=== PATIENT | male | born 1960 | race Caucasian/White ===

== ENCOUNTER 2019-04-11 01:35 | Inpatient (IN) | payer MEDICARE ==
--- NOTE | 2019-04-11 03:03 | PDOC.FPRHP ---
- History of Present Illness Chief Complaint: Pain and drainage from R LE stump History of Present Illness: Mr. Zaldivar is a 58 yo male with PMHx of bilateral BKA, PVD, and multiple DVTs who presents as a transfer from [facility] for evaluation of pain, tenderness, and drainage from wounds on his right BKA. He states that both legs have been hurting and tender for over a month, but contributed it to crawling around on his knees. He states that in the last 4 days he has noticed a distinct increase in the pain and starting yesterday the end of his right stump began oozing clear/brown liquid and developed an bad odor. He contacted his surgeon Dr. Oviedo yesterday who initially scheduled him for an appointment on but then they recommended he go to the ED. Patient rates his pain today as . He admits to taking approx. 8 Tylenol (500mg tabs) and 8 Ibuprofen (200 mg tabs) at home today for pain relief but these did not really improve his pain. He has received multiple pain medications during his time in the [facility] and [facility] ERs (see ED course) but still states his pain is severe. ED Course: Patient was originally seen in [facility] ER in the early afternoon on 04/10 where he received 900 Clindamycin, 80 Lovenox, 50 & 100 Fentanyl, 1 mg Dilaudid , 15 Toradol. He was transferred to [facility] ER at 1:30AM today where he subsequently received Vancomycin x 1. Blood and Wound cultures were obtained. Repeat Lactic Acid was ordered. - Allergies/Adverse Reactions Allergies Allergy/AdvReac Type Severity Reaction Status Date / Time No Known Allergies Allergy Verified 03/17/16 09:11 - Home Medications Medication Instructions Recorded Confirmed Type Lisinopril 10 mg PO DAILY 12/23/15 04/11/19 History Acetaminophen W/ Codeine 1 tab PO Q6HR PRN 03/17/16 04/11/19 History [Acetaminophen/Codeine #3] Ibuprofen [Advil] 800 mg PO Q6HR PRN 03/17/16 04/11/19 History - History PMHx: HTN, PVD, multiple DVTs PSHx: Inguinal Hernia repair x 2 Bilateral BKA Skin graft on left Appendectomy FHx: Mother - Diabetes, pacemaker, (80s) from [place] Father - (67) leukemia Social: 1 PPD smoker x 35 years Drinks beer daily 6-12 Denies illicit drug use - Review of Systems General: denies: fever/chills, weight/appetite/sleep changes, night sweats, fatigue Eyes: denies: eye pain ENT: denies: nasal congestion, rhinorrhea Respiratory: denies: cough, congestion, shortness of breath Cardiovascular: denies: chest pain, palpitation, edema, orthopnea Gastrointestinal: denies: nausea, vomiting, diarrhea, constipation, abdominal pain, GI bleeding Genitourinary: denies: incontinence, dysuria, polyuria Skin: reports: lesions (Right stump) Musculoskeletal: reports: pain (right stump), tenderness, swelling Neurological: denies: syncope, weakness Psychological: denies: anxiety, depression - Vital signs BP: 126/89 HR: 87 RR: 16 Tmax: 98.2 Pox: 88% on RA Wt: 74.8 kg - Physical Exam Constitutional: NAD, awake, alert and oriented, well developed HEENT: normocephalic and atraumatic, PERRLA, EOMI, grossly normal vision, grossly normal hearing Neck: supple, FROM Chest: no-tender to palpation Heart: RRR, normal S1/S2, no murmurs/rubs/gallops Lungs: CTAB, no respiratory distress, good air movement, no rales/rhonchi, no wheezing, no retractions Abdomen: soft, non-tender, bowel sounds present, no masses/distention Musculoskeletal: other (Bilateral BKA. Right kneecap eschar is [id number]. Right inscisional eschar is [id number]. Left stump well healed.) Neurological: no focal deficit, CN II-XII intact, normal sensation Skin: other (skin breakdown over right stump, darkened pigmentation over nose and extremities) Heme/Lymphatic: no unusual bruising or bleeding Psychiatric: normal mood and affect, good judgment and insight, intact recent and remote memory FMR H&P: Results - Labs Result Diagrams: 04/11/19 04:49 04/11/19 04:48 Lab results: Lactic acid 1.1 CBC: WBC 7.29, Hgb 18.1, Hct 53.0, MCV 88.6, Platelet 151 CMP: Na 131, K 3.4, Cl 99, CO2 19, BUN 4.1, Cr 0.6, GFR 142, Glucose 78, Ca 9.01 , Alk Phos 51, AST 20, ALT 21, Protein total 7.1 PT 13.2, INR 1.0, PTT 28.3 Ethanol Level: 74.2 See Patient's Chart for [facility] FMR H&P: A/P - Problem List (1) Cellulitis of right lower extremity Current Visit: Yes Status: Acute Code(s): L03.115 - CELLULITIS OF RIGHT LOWER LIMB (2) Hx of BKA Current Visit: Yes Status: Chronic Code(s): Z89.519 - ACQUIRED ABSENCE OF UNSPECIFIED LEG BELOW KNEE Qualifiers: Laterality: right Qualified Code(s): Z89.511 - Acquired absence of right leg below knee (3) BKA stump complication Current Visit: Yes Status: Acute Code(s): T87.9 - UNSPECIFIED COMPLICATIONS OF AMPUTATION STUMP (4) History of DVT (deep vein thrombosis) Current Visit: Yes Status: Chronic Code(s): Z86.718 - PERSONAL HISTORY OF OTHER VENOUS THROMBOSIS AND EMBOLISM (5) Alcohol abuse Current Visit: Yes Status: Chronic Code(s): F10.10 - ALCOHOL ABUSE, UNCOMPLICATED (6) Hypertension Current Visit: Yes Status: Chronic Code(s): I10 - ESSENTIAL (PRIMARY) HYPERTENSION Qualifiers: Hypertension type: essential hypertension Qualified Code(s): I10 - Essential (primary) hypertension (7) PVD (peripheral vascular disease) Current Visit: Yes Status: Chronic Code(s): I73.9 - PERIPHERAL VASCULAR DISEASE, UNSPECIFIED (8) Tobacco abuse Current Visit: Yes Status: Chronic Code(s): Z72.0 - TOBACCO USE (9) Hyponatremia Current Visit: Yes Status: Acute Code(s): E87.1 - HYPO-OSMOLALITY AND HYPONATREMIA - Plan 1. Cellulitis of Right Lower Extremity, r/o Osteomyelitis -Continue Vancomycin, pharmacy to dose -XR of Right LE -Check CRP, ESR, Procalcitonin -LR at 100 ml/hr 2. BKA Stump Complication, 2 wounds to right BKA -Morphine 4mg -Wound cultures -Consult Dr. Oviedo, Surgery -Consult Wound Care -Keep NPO until after surgery 3. Hypertension -Hold home Lisinopril 10 mg while NPO -Hydralazine 10mg ordered prn if BP systolic 180< 4. Tobacco use -Nicotine patch ordered 5. Alcohol Abuse -ASE protocol ordered 6. Peripheral Vascular Disease 7. Hx of DVTs -Hold Lovenox until after surgery -Consider long-term anticoagulation as outpatient 8. Hx of BKA, bilateral 9. Hyponatremia -Serum osm, Urine osm, Urine Na+ -AM CMP Code: DNI Diet: NPO until after surgery VTE: C/I until after surgery Disposition/LOS: Admit patient to medicine inpatient with expected LOS >48 hrs FMR H&P: Upper Level - Pertinent history 58 y/o M PMHx Multiple DVT's, HTN, PVD with h/o bilateral BKA's presents to the ED complaining of RLE pain. He had wounds that formed on his R stump over a month ago. He follows Dr. Oviedo who performed his BKA's. He saw him about a month ago and he says at the time the eschars were not as bad and it wasn't this painful. He reports about 3 days ago it began getting very painful, red, and leaking fluid. He denies any fevers, chills, N/V, chest pain, SOB. He had been on a chronic anticoagulant in the past, but he was unable to get eliquis because of cost so he hasn't been taking anything recently. He reports his BKA' s were over three years ago, the most recent one was the R. He smokes about 1ppd and drinks about 6-12 beers per day. He reports that there are some days where he wont drink anything, but he has never had any alcohol withdrawal tremors or seizures. - Pertinent findings Vitals: BP: 126/89 HR: 87 RR: 16 Tmax: 98.2 Pox: 88% on RA PE: Gen - alert, oriented, resting comfortably in NAD HEENT - MMM CV - RRR, no murmurs, gallops Resp - CTAB, no wheezes Abd - soft, nondistended, non tender Ext - Bilateral BKA Skin - 3x5 cm ulceration with central eschar on the anterior lateral aspect of the R stump with surrounding erythema and tenderness, no warmth. 5x6 cm ulceration with central eschar on the plantar aspect of the R stump with surrounding erythema and tenderness and serosanguinous fluid leaking from it Labs: Na 131, K 3.4, BUN 4.1, Cr 0.6, WBC 7.29, Platelet 151, EtOH 74.2 - Plan Date/Time: 04/11/19 0302 I, Jessica Elmore MD, PGY-2, have evaluated this patient and agree with findings/ plan as outlined by research program internship resident. Pertinent changes/additions are listed here. RLE ulceration with surrounding cellulitis Black eschar on both areas. Surrounding erythema and tenderness, no warmth noted. Pt afebrile and no elevation in lactic acid or WBC count. Concern for possible osteo vs superficial infection vs thrombosis. -X-ray -Vancomycin -Procalcitonin, ESR, CRP -Blood cultures, wound cultures -LR @ 100 -Will consult Dr. Oviedo with CV surgery this AM Hyponatremia Mild at 131. Likely 2/2 beer potomania. -Will check Urine Na, Urine Osm, Serum Osm -Monitor HTN BP well controlled at this time -Will have prn hydralazine and will restart PO lisinopril after decision made about surgery H/O DVT Pt was supposed to be on chronic anticoagulation per patient, but is not at this time -Consider re-initiating if it is found to be indicated Alcohol Abuse Was intoxicated in the [facility] ED. Had 8 drinks yesterday. -Will monitor ASE scores -If develops signs of withdrawal, will treat -Cessation counseling Tobacco Abuse -Nicoderm patch -Cessation counseling PVD s/p Bilateral BKA VTE ppx: None, will await decision about surgery prior to initiating lovenox Code status: Cardiac code only Diet: NPO pending possible surgery Addendum - Attending - Attending Attestation Date/Time: 04/11/19 1014 I personally evaluated the patient and discussed the management with Dr. Maria/ Ramírez. I agree with the History, Examination, Assessment and Plan documented above with any addition or exceptions noted below. Patient with history of b/l BKA 2/2 PVD and medical noncompliance with tobacco abuse presents with 1 month of increasing pain and open wound/drainage over the last 2 days from his L sided BKA. Denies fevers, chills. Reports only taking Lisinopril currently, has not taken ASA or Eliquis for months. Exam shows shallow ulcerations with drainage on the base of stump. He is afebrile. Labs do not suggest systemic infection. ESR low. CV sugery consulted as they are who performed BKA to start with. They are currently not recommending surgical intervention. Will consult Wound care. Due to history of pseudomonas infection, will continue Vanc and add Zosyn for now. Will work to restart patient on all the meds he needs to be on for PVD and recommend tobacco cessation. Anticipate 2 -3 days hospitalization pending clinical course.
[2019-04-11] MEDS ORDERED: HYDROcodone/Acetaminophen 5/325 mg Tablet ONE (03:10)
[2019-04-11] MEDS ORDERED: hydrALAZINE 20 MG/ML VIAL SLOW IVP PRN (03:53)
[2019-04-11] MEDS ORDERED: Ondansetron PF 4 MG/2 ML Vial IVP PRN (04:18)
[2019-04-11] MEDS ORDERED: Ondansetron ODT 4 MG TAB SL PRN (04:18)
[2019-04-11] MEDS ORDERED: Acetaminophen 325 MG TAB PO PRN (04:18)
[2019-04-11] MEDS ORDERED: Ondansetron ODT 4 MG TAB PO PRN (04:20)
[2019-04-11] MEDS ORDERED: Famotidine 20 MG TAB PO PRN (04:20)
[2019-04-11] MEDS ORDERED: Senokot S 8.6-50 MG TAB PO PRN (04:20)
[2019-04-11] MEDS: Lactated Ringer's 1,000 ML IV SCH ×2 (04:43→15:46)
[2019-04-11 04:59] LABS: #Basophils 0.1 thou/uL (0.0-0.2); #Eosinphils 0.2 thou/uL (0.0-0.7); #Lymphocytes 1.3 thou/uL (1.20-3.40); #Monocytes 0.8 thou/uL (0.11-0.59); #Neutrophils 4.3 thou/uL (1.40-6.50); %Eosinophils 3.6 % (0.0-10.0); %Lymphocytes 19.3 % (21.0-51.0); %Monocytes 12.1 % (0.0-10.0); Hemoglobin 17.7 g/dL (14.0-18.0); Mean Corpuscular Hemoglobin 31.6 pg (27.0-31.0); Mean Corpuscular Volume 95.8 fL (78.0-98.0); Mean Platelet Volume 6.6 fL (7.4-10.4); Platelet Count 130 thou/uL (130-400); RBC Distribution Width 12.9 % (11.5-14.5); Red Blood Cell (RBC) Count 5.59 mill/uL (4.70-6.10); White Blood Cell (WBC) Count 6.8 thou/uL (4.8-10.8)
[2019-04-11] MEDS ORDERED: Nicotine 21 MG PATCH TD SCH (05:00)
[2019-04-11] MEDS: Morphine 4 MG/ML VIAL SLOW IVP PRN ×2 (05:20→09:13)
[2019-04-11 05:22] LABS: Anion Gap 11 mmol/L (10-20); BUN (Urea Nitrogen) 6 mg/dL (8.4-25.7); Calc. Creatinine Clearance 0 mL/min (70-130); Calcium 9.3 mg/dL (7.8-10.44); Carbon Dioxide 25 mmol/L (22-29); Chloride 98 mmol/L (98-107); Estimated GFR-MDRD Greater than 90; Glucose 81 mg/dL (70-105); Sodium 130 mmol/L (136-145)
[2019-04-11 10:38] LABS: Cardiac Risk 4.5 (Less than 4.5)
--- NOTE | 2019-04-11 10:44 | CON ---
DATE OF CONSULTATION: HISTORY OF PRESENT ILLNESS: Mr. Zaldivar is a 58-year-old gentleman, well known to me from previous encounter. He underwent a right below-knee amputation for severe peripheral vascular disease with non-reconstructible anatomy on 03/18. He had healed nicely postoperatively. He never was able to use his prosthesis. He has also undergone a left below-knee amputation in the distant past. He gets around by crawling on his knees and dragging the distal stumps behind him. The patient presented to my office approximately a month ago with an ulcer over his patella and also an ulcer over his actual wound of his below-knee stump. This was from dragging himself on his knees and wearing the skin off his kneecaps and also abrasion and trauma to his incision. He continues to smoke over a pack of cigarettes a day at this point. At that time, we had a long discussion regarding his situation. If he was to continue to crawl on his knees and drag himself around and placed pressure on his patella, I did not feel like this would ever heal. He actually stopped doing this and his patella abrasion has nearly healed. The area over his incision has continued to fester. He has not had any good wound care to it since. He continues to smoke. PAST MEDICAL HISTORY: 1. Peripheral vascular disease. 2. Tobacco abuse. 3. History of hypercoagulable disorder. 4. History of bilateral DVT. 5. COPD. 6. Hypertension. 7. Noncompliance. 8. History of vena caval filter placement. MEDICATIONS: Noted. ALLERGIES: NONE. PHYSICAL EXAMINATION: GENERAL: This is a well-developed, well-nourished man who obviously smokes. He smells of cigarettes. LUNGS: Have distant breath sounds bilaterally. HEART: Rhythm is regular. ABDOMEN: Soft. EXTREMITIES: His right stump is as above. ASSESSMENT AND PLAN: Status post bilateral below-knee amputations with open area over his patella and over the incision on his right stump. I would recommend wound care over the incisional area. His right patellar abrasion/ulcer is healing and probably does not need anything done with it. We may have to debride and use a wound VAC on the incisional area, if this does not improve. I have also removed his nicotine patch. He has been going to have to go without nicotine to allow any healing to happen here. Job ID: [id number]
[2019-04-11] MEDS: Morphine 2 MG/ML SYRINGE SLOW IVP PRN ×5 (13:21→23:42)
[2019-04-11] MEDS: Piperacillin/Tazobactam 4.5 GM in Sodium Chloride 0.9% 100 ML IVPB SCH ×2 (13:21→20:08)
[2019-04-11 13:51] VITALS: BMI 21.2
--- NOTE | 2019-04-11 14:38 | RAD ---
RIGHT KNEE FOUR VIEWS: INDICATIONS: Rule out osteomyelitis. COMPARISON: None. FINDINGS: There is soft tissue gas involving the amputation stump overlying the right BKA. No overt destructiv e osteolysis is suggested in the amputation stump to suggest the presence of osteomyelitis. There is diffuse osteopenia. No definite joint capsular distention is evident. IMPRESSION: 1. Soft tissue gas involving the amputation soft tissue stump. May reflect localized wound incision and debridement or soft tissue infection. Recommend correlation. There is no destructive osteolysi s to suggest the presence radiographically of osteomyelitis. 2. Diffuse osteopenia. POS: CET
[2019-04-11] MEDS ORDERED: SODIUM CHLORIDE 0.9% IVPB SCH (15:00)
[2019-04-11] MEDS ORDERED: VANCOMYCIN HCL IVPB SCH (15:00)
[2019-04-11] MEDS: Vancomycin HCl 1.25 GM in Sodium Chloride 0.9% 250 ML 250 ML IVPB SCH (15:46)
[2019-04-11] MEDS: Atorvastatin Calcium 40 MG TAB PO SCH (20:08)
[2019-04-11] MEDS: Enoxaparin Sodium 40 MG/0.4 ML SYRINGE SC SCH (20:08)
[2019-04-12] MEDS: Lactated Ringer's 1,000 ML IV SCH ×3 (01:26→23:30)
[2019-04-12] MEDS: Morphine 2 MG/ML SYRINGE SLOW IVP PRN ×4 (02:08→09:08)
[2019-04-12] MEDS: Vancomycin HCl 1.25 GM in Sodium Chloride 0.9% 250 ML 250 ML IVPB SCH ×2 (02:08→15:27)
[2019-04-12] MEDS: Piperacillin/Tazobactam 4.5 GM in Sodium Chloride 0.9% 100 ML IVPB SCH ×3 (05:22→20:24)
--- NOTE | 2019-04-12 08:44 | PDOC.FM ---
- Subjective Subjective: Patient states he has 5/10 RLE pain, that is alleviated by hanging his stump off of the bed. He feels he has improved slightly. - Objective MAR Reviewed: Yes Vital Signs & Weight: Vital Signs (12 hours) Temp Pulse Resp BP Pulse Ox 04/12/19 07:55 98.1 F 77 16 162/93 H 96 04/12/19 03:41 98.7 F 76 18 140/86 96 04/11/19 23:32 99.0 F 91 18 119/76 97 Weight Admit Weight 73.028 kg Weight 73.028 kg I&O: 04/11/19 04/12/19 04/13/19 06:59 06:59 06:59 Intake Total 5085 Output Total 2600 Balance 2485 Result Diagrams: 04/11/19 04:49 04/11/19 04:48 Radiology Reviewed by me: Yes (R-Knee: gas in tissue, no osteo, +osteopenia ) Phys Exam - Physical Examination Constitutional: NAD HEENT: PERRLA, moist MMs, sclera anicteric Neck: no nodes, no JVD, supple, full ROM Respiratory: no wheezing, no rales, no rhonchi Cardiovascular: RRR, no significant murmur, no rub Gastrointestinal: soft, non-tender, no distention, positive bowel sounds Musculoskeletal: no edema, pulses present bilateral BKA, Right BKS has X2 eschar over ulcerations. 3-5 CM in size. Neurological: non-focal, moves all 4 limbs Psychiatric: normal affect, A&O x 3 Skin: no rash, normal turgor, cap refill <2 seconds Deviation from normal: R BKA black eschar overlying X2 ulcerative lesions over stump. Dx/Plan (1) Cellulitis of right lower extremity Code(s): L03.115 - CELLULITIS OF RIGHT LOWER LIMB Status: Acute (2) BKA stump complication Code(s): T87.9 - UNSPECIFIED COMPLICATIONS OF AMPUTATION STUMP Status: Acute (3) Alcohol abuse Code(s): F10.10 - ALCOHOL ABUSE, UNCOMPLICATED Status: Chronic (4) History of DVT (deep vein thrombosis) Code(s): Z86.718 - PERSONAL HISTORY OF OTHER VENOUS THROMBOSIS AND EMBOLISM Status: Chronic (5) Hx of BKA Code(s): Z89.519 - ACQUIRED ABSENCE OF UNSPECIFIED LEG BELOW KNEE Status: Chronic Qualifiers: Laterality: right Qualified Code(s): Z89.511 - Acquired absence of right leg below knee (6) Hypertension Code(s): I10 - ESSENTIAL (PRIMARY) HYPERTENSION Status: Chronic Qualifiers: Hypertension type: essential hypertension Qualified Code(s): I10 - Essential (primary) hypertension (7) PVD (peripheral vascular disease) Code(s): I73.9 - PERIPHERAL VASCULAR DISEASE, UNSPECIFIED Status: Chronic (8) Hyponatremia Code(s): E87.1 - HYPO-OSMOLALITY AND HYPONATREMIA Status: Acute - Plan Plan: 58 y/o male admitted for cellulits over left BKA open wounds. 1. Cellulitis and ulceration of Right BKA site. -Xray: gas present in tissue, no osteomyelitis, diffuse osteopenia - continue Vanc and Zosyn - Procalcitonin .06 -ESR 2 -CRP 1.34 -blood and wound culture pending -Consult Dr. Oviedo recommended medical and wound management at this time. No surgery. 2. Peripheral Vascular Disease -patient has been off all medications -restarted statin, aspirin and lovenox -upon discharge, add eliquis -Lipid Panel: triglycerides: 116, Tchol: 136, LDL 84, HDL 31 3. HTN -uncontrolled. 150's/90's -restart PO lisinopril 10 mg daily . 4. Hyponatremia -mildly low, likely chronic and secondary to beer potomania 5. Tobacco abuse d/o -cessation counseling. 6. Hx of Bilateral BKA 7. Alcohol abuse d/o -ASE protocol 8. Full code Disposition: Stable, continue anitbiotic therapy. Addendum - Attending - Attending Attestation Date/Time: 04/12/19 8543 I personally evaluated the patient and discussed the management with Dr. Feliz. I agree with the History, Examination, Assessment and Plan documented above with any addition or exceptions noted below. Patient here for superficial stump cellulitis and ulcerations. Non operative at this point per CV surgery. Continues on IV abx and wound care. Will initiate some baseline oral pain control. Awaiting cx results and further CV recs, if any. Will need outpatient wound care set up upon discharge.
[2019-04-12] MEDS: Aspirin 81 mg Enteric Coated Tablet PO SCH (09:00)
[2019-04-12] MEDS: Lisinopril 10 MG TAB PO SCH (09:13)
[2019-04-12] MEDS: HYDROcodone/Acetaminophen 10/325 mg Tablet PO PRN ×3 (10:07→21:14)
[2019-04-12 14:43] LABS: Vancomycin, Trough 9.4 ug/mL
[2019-04-12] MEDS: Vancomycin HCl 1.5 GM in Sodium Chloride 0.9% 250 ML 300 ML IVPB SCH (18:18)
[2019-04-12] MEDS: Senokot S 8.6-50 MG TAB PO SCH (20:43)
[2019-04-12] MEDS: Enoxaparin Sodium 40 MG/0.4 ML SYRINGE SC SCH (20:44)
[2019-04-12] MEDS: Atorvastatin Calcium 40 MG TAB PO SCH (20:44)
[2019-04-13] MEDS: HYDROcodone/Acetaminophen 10/325 mg Tablet PO PRN ×4 (02:47→19:51)
[2019-04-13] MEDS ORDERED: Vancomycin HCl 1.5 GM in Sodium Chloride 0.9% 250 ML 300 ML IVPB SCH (03:00)
[2019-04-13] MEDS: Piperacillin/Tazobactam 4.5 GM in Sodium Chloride 0.9% 100 ML IVPB SCH ×3 (03:30→19:49)
[2019-04-13] MEDS: Vancomycin HCl 1.5 GM in Sodium Chloride 0.9% 250 ML 300 ML IVPB SCH ×2 (05:30→18:50)
--- NOTE | 2019-04-13 06:10 | PDOC.FM ---
- Subjective Subjective: Patient states his pain is controlled better today than yesterday. He tells me that wound care plans to clean the wounds more aggressively today. Patient states he had trouble taking coumadin in the past and would rather take eliquis upon discharge. - Objective MAR Reviewed: Yes Vital Signs & Weight: Vital Signs (12 hours) Temp Pulse Resp BP Pulse Ox 04/13/19 03:31 98.2 F 71 18 134/78 92 L 04/12/19 23:15 98.2 F 77 18 118/72 94 L 04/12/19 20:20 98.3 F 86 18 131/76 94 L Weight Admit Weight 73.028 kg Weight 73.028 kg I&O: 04/11/19 04/12/19 04/13/19 06:59 06:59 06:59 Intake Total 5085 2640 Output Total 2600 3350 Balance 2485 -710 Result Diagrams: 04/11/19 04:49 04/11/19 04:48 Phys Exam - Physical Examination Constitutional: NAD HEENT: PERRLA, moist MMs, sclera anicteric Neck: no nodes, no JVD, supple, full ROM Respiratory: no rales, no rhonchi, wheezing present Cardiovascular: RRR, no significant murmur, no rub Gastrointestinal: soft, non-tender, no distention, positive bowel sounds Musculoskeletal: no edema, pulses present Neurological: non-focal, normal sensation, moves all 4 limbs Psychiatric: normal affect, A&O x 3 Skin: no rash, normal turgor, cap refill <2 seconds Deviation from normal: X2 ulcertaed lesions on R BKA stump. Dx/Plan (1) Cellulitis of right lower extremity Code(s): L03.115 - CELLULITIS OF RIGHT LOWER LIMB Status: Acute (2) BKA stump complication Code(s): T87.9 - UNSPECIFIED COMPLICATIONS OF AMPUTATION STUMP Status: Acute (3) Alcohol abuse Code(s): F10.10 - ALCOHOL ABUSE, UNCOMPLICATED Status: Chronic (4) History of DVT (deep vein thrombosis) Code(s): Z86.718 - PERSONAL HISTORY OF OTHER VENOUS THROMBOSIS AND EMBOLISM Status: Chronic (5) Hx of BKA Code(s): Z89.519 - ACQUIRED ABSENCE OF UNSPECIFIED LEG BELOW KNEE Status: Chronic Qualifiers: Laterality: right Qualified Code(s): Z89.511 - Acquired absence of right leg below knee (6) Hypertension Code(s): I10 - ESSENTIAL (PRIMARY) HYPERTENSION Status: Chronic Qualifiers: Hypertension type: essential hypertension Qualified Code(s): I10 - Essential (primary) hypertension (7) PVD (peripheral vascular disease) Code(s): I73.9 - PERIPHERAL VASCULAR DISEASE, UNSPECIFIED Status: Chronic (8) Hyponatremia Code(s): E87.1 - HYPO-OSMOLALITY AND HYPONATREMIA Status: Acute - Plan Plan: 58 y/o male admitted for cellulits over left BKA open wounds. 1. Cellulitis and ulceration of Right BKA site. -Xray: gas present in tissue, no osteomyelitis, diffuse osteopenia - continue Vanc and Zosyn, transition to Po antibiotics -Pharmacy consult for vanc dosing, Trough was low yesterday. - Procalcitonin .06 -ESR 2 -CRP 1.34 -blood culture pending -wound culture: gram negative rods, stenotrophomonas maltophilia. Levaquin and Bactrim sensitive. -Consult Dr. Oviedo recommended medical and wound management at this time. No surgery. 2. Peripheral Vascular Disease -patient has been off all medications -restarted statin, aspirin and lovenox -upon discharge, add eliquis. Consulted case management for help with funding. -Lipid Panel: triglycerides: 116, Tchol: 136, LDL 84, HDL 31 3. HTN -controled throughout the night. mostly in 120-130's/70-80's -restarted PO lisinopril 10 mg daily . 4. Hyponatremia -mildly low, likely chronic and secondary to beer potomania 5. Tobacco abuse d/o -cessation counseling. 6. Hx of Bilateral BKA 7. Alcohol abuse d/o -ASE protocol 8. Full code Disposition: Stable, continue anitbiotic therapy, transition to PO. Addendum - Attending - Attending Attestation Date/Time: 04/13/19 2611 I personally evaluated the patient and discussed the management with Dr. Feliz. I agree with the History, Examination, Assessment and Plan documented above with any addition or exceptions noted below. Patient here for L BKA stump cellulitis and ulceration. Wound care on board. He continues on Vanc and Zosyn, cultures resulting with more skin dilan that may be pathogenic at this time. Awaiting final cx. No plans for surgical intervention. Arranging outpatient wound care. Pain control improved with PO meds. He is back on statin and ASA therapy and working to get him patient assistance for Tanvir in outpatient setting.
[2019-04-13] MEDS: Lactated Ringer's 1,000 ML IV SCH ×3 (06:21→23:19)
[2019-04-13] MEDS: Polyethylene Glycol 3350 17 GM Packet PO SCH (08:52)
[2019-04-13] MEDS: Aspirin 81 mg Enteric Coated Tablet PO SCH (08:52)
[2019-04-13] MEDS: Senokot S 8.6-50 MG TAB PO SCH ×2 (08:52→19:49)
[2019-04-13] MEDS: Lisinopril 10 MG TAB PO SCH (08:52)
[2019-04-13] MEDS: Pharmacy to Dose 1 EACH VANCOMYCIN IVPB SCH (08:54)
[2019-04-13 17:33] LABS: Vancomycin, Trough 12.5 ug/mL
[2019-04-13] MEDS: Morphine 2 MG/ML SYRINGE SLOW IVP PRN (18:32)
[2019-04-13] MEDS: Apixaban 5 MG TAB PO SCH (19:49)
[2019-04-13] MEDS: Atorvastatin Calcium 40 MG TAB PO SCH (19:49)
[2019-04-14] MEDS: Morphine 2 MG/ML SYRINGE SLOW IVP PRN ×3 (04:00→22:33)
[2019-04-14] MEDS: HYDROcodone/Acetaminophen 10/325 mg Tablet PO PRN ×4 (04:01→21:11)
[2019-04-14] MEDS: Piperacillin/Tazobactam 4.5 GM in Sodium Chloride 0.9% 100 ML IVPB SCH ×3 (04:01→20:59)
[2019-04-14 05:38] LABS: Vancomycin, Trough 13.2 ug/mL
--- NOTE | 2019-04-14 05:49 | PDOC.FM ---
- Subjective Subjective: Patient states his pain is better managed overall, but he still has some intermittent severe pain spells. He would prefer to go to a SNF or rehab before going home, as I recommended this as a possible discharge plan. - Objective MAR Reviewed: Yes Vital Signs & Weight: Vital Signs (12 hours) Temp Pulse Resp BP Pulse Ox 04/14/19 05:06 98.1 F 63 16 134/82 93 L 04/14/19 00:43 98.2 F 75 16 118/72 98 04/13/19 20:02 98.6 F 70 16 117/72 92 L Weight Admit Weight 73.028 kg Weight 73.028 kg I&O: 04/12/19 04/13/19 04/14/19 06:59 06:59 06:59 Intake Total 5085 2640 3000 Output Total 2600 3350 2050 Balance 2485 -710 950 Result Diagrams: 04/11/19 04:49 04/11/19 04:48 Phys Exam - Physical Examination Constitutional: NAD HEENT: PERRLA, moist MMs, sclera anicteric Neck: no JVD, supple, full ROM Respiratory: no wheezing, no rales, no rhonchi Cardiovascular: RRR, no significant murmur, no rub Gastrointestinal: soft, non-tender, no distention, positive bowel sounds Musculoskeletal: no edema, pulses present bilateral BKA. Tenderness to R BKA stump. Neurological: non-focal, normal sensation, moves all 4 limbs Psychiatric: normal affect Skin: no rash, normal turgor, cap refill <2 seconds Deviation from normal: X2 ulcerations overlying R BKA stump. Dx/Plan (1) Cellulitis of right lower extremity Code(s): L03.115 - CELLULITIS OF RIGHT LOWER LIMB Status: Acute (2) BKA stump complication Code(s): T87.9 - UNSPECIFIED COMPLICATIONS OF AMPUTATION STUMP Status: Acute (3) Alcohol abuse Code(s): F10.10 - ALCOHOL ABUSE, UNCOMPLICATED Status: Chronic (4) History of DVT (deep vein thrombosis) Code(s): Z86.718 - PERSONAL HISTORY OF OTHER VENOUS THROMBOSIS AND EMBOLISM Status: Chronic (5) Hx of BKA Code(s): Z89.519 - ACQUIRED ABSENCE OF UNSPECIFIED LEG BELOW KNEE Status: Chronic Qualifiers: Laterality: right Qualified Code(s): Z89.511 - Acquired absence of right leg below knee (6) Hypertension Code(s): I10 - ESSENTIAL (PRIMARY) HYPERTENSION Status: Chronic Qualifiers: Hypertension type: essential hypertension Qualified Code(s): I10 - Essential (primary) hypertension (7) PVD (peripheral vascular disease) Code(s): I73.9 - PERIPHERAL VASCULAR DISEASE, UNSPECIFIED Status: Chronic (8) Hyponatremia Code(s): E87.1 - HYPO-OSMOLALITY AND HYPONATREMIA Status: Acute - Plan Plan: 58 y/o male admitted for cellulits over left BKA ulcerations. 1. Cellulitis and ulceration of Right BKA site. -Xray: gas present in tissue, no osteomyelitis, diffuse osteopenia - continue Vanc and Zosyn, transition to PO Bactrim -Pharmacy is currently dosing Vanc. Trough 13.2 today. - Procalcitonin .06 -ESR 2 -CRP 1.34 -blood culture pending -wound culture: E. coli, stenotrophomonas maltophilia, MRSA. Bactrim sensitive for X3 organisms. -Consult Dr. Oviedo recommended medical and wound management at this time. No surgery. -Consider transition to temporary Rehab or SNF. 2. Peripheral Vascular Disease -patient has been off all medications -restarted statin, aspirin and eliquis -Consulted case management for help with funding. -Lipid Panel: triglycerides: 116, Tchol: 136, LDL 84, HDL 31 3. HTN -controlled throughout the night. mostly in 120-130's/70-80's -restarted PO lisinopril 10 mg daily . 4. Hyponatremia -mildly low, likely chronic and secondary to beer potomania 5. Tobacco abuse d/o -cessation counseling. 6. Hx of Bilateral BKA 7. Alcohol abuse d/o -ASE protocol 8. Full code Disposition: Stable, continue anitbiotic therapy, transition to PO Bactrim. Consider transition to rehab. Addendum - Attending - Attending Attestation Date/Time: 04/14/19 0777 I personally evaluated the patient and discussed the management with Dr. Feliz. I agree with the History, Examination, Assessment and Plan documented above with any addition or exceptions noted below. Patient here for L BKA stump infection. He continues to do well with some breakthrough pain. Can likely transition to PO Bactrim therapy today. Continue pain control and wound care. Will consult CM to work on placement for patient as he would benefit from Rehab versus SNF prior to going home.
[2019-04-14] MEDS: Vancomycin HCl 1.5 GM in Sodium Chloride 0.9% 250 ML 300 ML IVPB SCH (06:04)
[2019-04-14] MEDS: Pharmacy to Dose 1 EACH VANCOMYCIN IVPB SCH (09:00)
[2019-04-14] MEDS: Senokot S 8.6-50 MG TAB PO SCH ×2 (09:40→21:02)
[2019-04-14] MEDS: Polyethylene Glycol 3350 17 GM Packet PO SCH (09:40)
[2019-04-14] MEDS: Lisinopril 10 MG TAB PO SCH (09:40)
[2019-04-14] MEDS: Aspirin 81 mg Enteric Coated Tablet PO SCH (09:40)
[2019-04-14] MEDS: Apixaban 5 MG TAB PO SCH ×2 (09:40→21:01)
[2019-04-14] MEDS: Lactated Ringer's 1,000 ML IV SCH (13:07)
[2019-04-14] MEDS: Vancomycin HCl 1 GM in Premix Bag 1 BAG IVPB SCH ×2 (14:41→22:24)
[2019-04-14] MEDS: Atorvastatin Calcium 40 MG TAB PO SCH (21:01)
[2019-04-15] MEDS: HYDROcodone/Acetaminophen 10/325 mg Tablet PO PRN ×5 (02:27→22:06)
[2019-04-15] MEDS: Lactated Ringer's 1,000 ML IV SCH ×3 (02:30→18:07)
[2019-04-15] MEDS: Morphine 2 MG/ML SYRINGE SLOW IVP PRN ×2 (05:02→11:44)
[2019-04-15 05:24] LABS: Vancomycin, Trough 21.6 ug/mL
--- NOTE | 2019-04-15 05:37 | PDOC.FM ---
- Subjective Subjective: Patient resting quietly in bed and easily awakened. He states his pain is much better overall, but he still has some intermittent severe pain episodes where pain increases to 10/10. He does not have any pain when he lets his leg hang off the side of the bed. With movement his pain increases to 5-6/10. At admission patient had reported phantom pain in both his legs, but this sensation has improved over the past day. He would prefer at discharge to go to a SNF or rehab before going home. We currently anticipate recommendations from case management. CM is also working to get the patient discount for Eliquis. Patient had been constipated the past few days, but had 1 good BM yesterday afternoon. Wound Care changed his dressing yesterday and instructed him that the dressing would be changed again in 3 days (so anticipate dressing change on 04/17). - Objective MAR Reviewed: Yes Vital Signs & Weight: Vital Signs (12 hours) Temp Pulse Resp BP Pulse Ox 04/15/19 03:50 98 F 60 16 117/77 94 L 04/14/19 20:16 98 F 77 16 114/72 96 Weight Admit Weight 73.028 kg Weight 73.028 kg I&O: 04/13/19 04/14/19 04/15/19 06:59 06:59 06:59 Intake Total 2640 3000 Output Total 3350 2050 1600 Balance -710 950 -1600 Result Diagrams: 04/11/19 04:49 04/11/19 04:48 Additional Labs: Blood cultures: Positive for MRSA, E.coli, Stenotrophomonas maltophilia. Currently all are sensitive to PO Bactrim. Radiology Reviewed by me: Yes (XR Right knee negative for osteomyelitis, does show gas in soft tissue) Phys Exam - Physical Examination Constitutional: NAD HEENT: moist MMs, sclera anicteric Neck: no JVD, supple, full ROM Respiratory: no wheezing, no rales, no rhonchi, clear to auscultation bilateral Cardiovascular: RRR, no significant murmur Gastrointestinal: soft, non-tender, positive bowel sounds Musculoskeletal: no edema Bilateral BKAs Neurological: normal sensation Psychiatric: normal affect, A&O x 3 Skin: no rash Deviation from normal: Dressing in place over right BKA stump. Dressing is dry and intact with -: no visible drainage. Dx/Plan (1) Cellulitis of right lower extremity Code(s): L03.115 - CELLULITIS OF RIGHT LOWER LIMB Status: Acute (2) Hx of BKA Code(s): Z89.519 - ACQUIRED ABSENCE OF UNSPECIFIED LEG BELOW KNEE Status: Chronic Qualifiers: Laterality: right Qualified Code(s): Z89.511 - Acquired absence of right leg below knee (3) BKA stump complication Code(s): T87.9 - UNSPECIFIED COMPLICATIONS OF AMPUTATION STUMP Status: Acute (4) History of DVT (deep vein thrombosis) Code(s): Z86.718 - PERSONAL HISTORY OF OTHER VENOUS THROMBOSIS AND EMBOLISM Status: Chronic (5) Alcohol abuse Code(s): F10.10 - ALCOHOL ABUSE, UNCOMPLICATED Status: Chronic (6) Hypertension Code(s): I10 - ESSENTIAL (PRIMARY) HYPERTENSION Status: Chronic Qualifiers: Hypertension type: essential hypertension Qualified Code(s): I10 - Essential (primary) hypertension (7) PVD (peripheral vascular disease) Code(s): I73.9 - PERIPHERAL VASCULAR DISEASE, UNSPECIFIED Status: Chronic (8) Tobacco abuse Code(s): Z72.0 - TOBACCO USE Status: Chronic (9) Hyponatremia Code(s): E87.1 - HYPO-OSMOLALITY AND HYPONATREMIA Status: Acute (10) Constipation Code(s): K59.00 - CONSTIPATION, UNSPECIFIED Status: Acute Qualifiers: Constipation type: drug induced constipation Qualified Code(s): K59.03 - Drug induced constipation - Plan Plan: 58 y/o male admitted for cellulits over Right BKA ulcerations. 1. Cellulitis and ulceration of Right BKA site. -Xray: gas present in tissue, no osteomyelitis, diffuse osteopenia -discontinue Vanc and Zosyn, transition to PO Bactrim today -blood culture negative -wound culture: E. coli, stenotrophomonas maltophilia, MRSA. Bactrim sensitive for X3 organisms. -Consult Dr. Oviedo recommended medical and wound management at this time. No surgery. -Case management working to transition patent to temporary Rehab or SNF. -LR at 100 -Pain control: [place] 10mg & Morphine 2mg ordered prn 2. Peripheral Vascular Disease -Home meds restarted including statin, aspirin and eliquis -Consulted case management for help with funding of Eliquis -Lipid Panel: triglycerides: 116, Tchol: 136, LDL 84, HDL 31 3. HTN -controlled throughout the night. mostly in 120-130's/70-80's -Home med restarted: PO lisinopril 10 mg daily . 4. Hyponatremia -mildly low, likely chronic and secondary to alcohol intake 5. Tobacco abuse d/o -Consider cessation counseling 6. Hx of Bilateral BKA 7. Alcohol abuse d/o -ASE protocol 8. Constipation--resolved -Miralax and Senna ordered prn. -Pt had 1 large BM on 04/14. Diet: Heart healthy VTEs: Eliquis Code status: Full code Disposition: Stable, continue anitbiotic therapy, transition to PO Bactrim. Consider transition to rehab.
[2019-04-15] MEDS: Piperacillin/Tazobactam 4.5 GM in Sodium Chloride 0.9% 100 ML IVPB SCH ×2 (05:41→12:06)
[2019-04-15] MEDS: Vancomycin HCl 1 GM in Premix Bag 1 BAG IVPB SCH ×2 (06:32→13:42)
[2019-04-15] MEDS: Apixaban 5 MG TAB PO SCH ×2 (08:54→20:51)
[2019-04-15] MEDS: Aspirin 81 mg Enteric Coated Tablet PO SCH (08:54)
[2019-04-15] MEDS: Polyethylene Glycol 3350 17 GM Packet PO SCH (08:54)
[2019-04-15] MEDS: Senokot S 8.6-50 MG TAB PO SCH ×2 (08:54→20:51)
[2019-04-15] MEDS: Lisinopril 10 MG TAB PO SCH (08:55)
[2019-04-15] MEDS: Pharmacy to Dose 1 EACH VANCOMYCIN IVPB SCH (10:02)
--- NOTE | 2019-04-15 12:49 | PRG ---
DATE OF SERVICE: 04/15/2019 Mr. Zaldivar is a 58-year-old smoking patient with bilateral amputations secondary to PVD. He came in with some stump drainage and possible mild infection. He is growing several unusual organisms and is on the correct antibiotic coverage. In fact, he can likely be transposition to p.o. antibiotics in anticipation of discharge to rehabilitation. I have again asked him to consider bilateral prostheses as he scoots around on his stubs and likely this is what causes some tissue breakdown and infection. He is still smoking and is encouraged of course to quit. Job ID: [id number]
--- NOTE | 2019-04-15 19:32 | PDOC.FM ---
- Subjective Subjective: Patient resting quietly in bed this morning and easily awakened. Yesterday IV antibiotics Vancomycin and Zosyn were discontinued and PO Bactrim was started, which the patient has tolerated well so far. He states his pain is much better overall, but he still continues to have intermittent severe pain episodes where pain increases to 10/10. He does not have any pain when he lets his leg hang off the side of the bed. With movement his pain increases to 5-6/10. He is still requiring [place] 10 mg for pain control. At admission patient had reported phantom pain in both his legs, but this sensation has improved over the past 2 days. After speaking to Case Management yesterday afternoon, the patient has decided that he would prefer to transfer to [facility] upon discharge. He was also given a coupon for Eliquis to help with his purchase of the medication as outpatient. Wound Care changed his dressing on 04/14 and instructed him that the dressing would be changed again on 04/17. ROS: Denies fever/chills, nausea/vomiting, diarrhea, headache, vision or hearing changes, chest pain, edema. Constipation improved. - Objective MAR Reviewed: Yes Vital Signs & Weight: Vital Signs (12 hours) Temp Pulse Resp BP BP Pulse Ox 04/15/19 16:00 98.1 F 67 18 138/81 95 04/15/19 11:29 98.5 F 76 18 147/91 H 96 04/15/19 08:55 124/77 04/15/19 08:54 95 04/15/19 07:39 98.1 F 63 18 113/76 95 Weight Admit Weight 73.028 kg Weight 73.028 kg Selected Entries 04/15/19 04/15/19 04/16/19 20:23 23:15 03:26 Temperature 98.1 F 98.3 F 98.0 F Pulse Rate 77 67 73 Blood Pressure 119/74 145/81 H 128/79 [semifowlers] Respiratory 18 18 16 Rate O2 Sat by Pulse 97 94 L 94 L Oximetry Oxygen Delivery Room Air Room Air Room Air Method I&O: 04/14/19 04/15/19 04/16/19 06:59 06:59 06:59 Intake Total 2999 2019 Output Total 2049 1849 Balance 950 170 Result Diagrams: 04/11/19 04:49 04/11/19 04:48 Phys Exam - Physical Examination Constitutional: NAD HEENT: moist MMs, sclera anicteric Neck: no JVD, supple, full ROM Respiratory: no wheezing, no rales, no rhonchi, clear to auscultation bilateral Cardiovascular: RRR, no significant murmur Gastrointestinal: soft, non-tender, positive bowel sounds Musculoskeletal: no edema Bilateral BKAs present Neurological: normal sensation Psychiatric: normal affect, A&O x 3 Skin: no rash Deviation from normal: Dressing present over Right LE stump. Dressing is clean with no drainage Dx/Plan (1) Cellulitis of right lower extremity Code(s): L03.115 - CELLULITIS OF RIGHT LOWER LIMB Status: Acute (2) Hx of BKA Code(s): Z89.519 - ACQUIRED ABSENCE OF UNSPECIFIED LEG BELOW KNEE Status: Chronic Qualifiers: Laterality: right Qualified Code(s): Z89.511 - Acquired absence of right leg below knee (3) BKA stump complication Code(s): T87.9 - UNSPECIFIED COMPLICATIONS OF AMPUTATION STUMP Status: Acute (4) History of DVT (deep vein thrombosis) Code(s): Z86.718 - PERSONAL HISTORY OF OTHER VENOUS THROMBOSIS AND EMBOLISM Status: Chronic (5) Alcohol abuse Code(s): F10.10 - ALCOHOL ABUSE, UNCOMPLICATED Status: Chronic (6) Hypertension Code(s): I10 - ESSENTIAL (PRIMARY) HYPERTENSION Status: Chronic Qualifiers: Hypertension type: essential hypertension Qualified Code(s): I10 - Essential (primary) hypertension (7) PVD (peripheral vascular disease) Code(s): I73.9 - PERIPHERAL VASCULAR DISEASE, UNSPECIFIED Status: Chronic (8) Tobacco abuse Code(s): Z72.0 - TOBACCO USE Status: Chronic (9) Hyponatremia Code(s): E87.1 - HYPO-OSMOLALITY AND HYPONATREMIA Status: Acute (10) Constipation Code(s): K59.00 - CONSTIPATION, UNSPECIFIED Status: Acute Qualifiers: Constipation type: drug induced constipation Qualified Code(s): K59.03 - Drug induced constipation - Plan Plan: 58 y/o male admitted for cellulits over Right BKA ulcerations. 1. Cellulitis and ulceration of Right BKA site. -Xray: gas present in tissue, no osteomyelitis, diffuse osteopenia -Vanc and Zosyn discontinued on 04/15 with transition to PO Bactrim -blood culture negative -wound culture: E. coli, stenotrophomonas maltophilia, MRSA. Bactrim sensitive for X3 organisms. -Consult Dr. Oviedo recommended medical and wound management at this time. No surgery. -Case management working on placement at [facility] for continued rehab & wound care -LR at 100 -Pain control: [place] 10mg ordered prn 2. Peripheral Vascular Disease -Home meds restarted including statin, aspirin and eliquis -Consulted case management for help with funding of Eliquis--Patient given discount coupon yesterday afternoon -Lipid Panel: triglycerides: 116, Tchol: 136, LDL 84, HDL 31 3. HTN -controlled throughout the night. mostly in 120-130's/70-80's -Home med restarted: PO lisinopril 10 mg daily . 4. Hyponatremia -mildly low, likely chronic and secondary to alcohol intake 5. Tobacco abuse d/o -Consider cessation counseling although patient still not interested in stopping tobacco use at this time. -Surgery recs to discontinue Nicotine patch in order to promote wound healing 6. Hx of Bilateral BKA 7. Alcohol abuse d/o -ASE protocol in place 8. Constipation--resolved -Miralax and Senna ordered prn. -Pt had 1 large BM on 04/14. Diet: Heart healthy VTEs: Eliquis Code status: Full code Disposition: Stable, continue PO Bactrim antibiotic tx. Anticipate transition to SNF today or tomorrow.
[2019-04-15] MEDS: Atorvastatin Calcium 40 MG TAB PO SCH (20:50)
[2019-04-15] MEDS: Sulfameth/Trimethoprim DS 800-160mg TAB PO SCH (20:51)
[2019-04-16] MEDS: Lactated Ringer's 1,000 ML IV SCH ×2 (03:36→15:56)
[2019-04-16] MEDS: HYDROcodone/Acetaminophen 10/325 mg Tablet PO PRN ×3 (03:38→17:03)
[2019-04-16] MEDS: Sulfameth/Trimethoprim DS 800-160mg TAB PO SCH (09:09)
[2019-04-16] MEDS: Polyethylene Glycol 3350 17 GM Packet PO SCH (09:09)
[2019-04-16] MEDS: Senokot S 8.6-50 MG TAB PO SCH (09:09)
[2019-04-16] MEDS: Lisinopril 10 MG TAB PO SCH (09:09)
[2019-04-16] MEDS: Apixaban 5 MG TAB PO SCH (09:10)
[2019-04-16] MEDS: Aspirin 81 mg Enteric Coated Tablet PO SCH (09:10)
--- NOTE | 2019-04-16 13:09 | PRG ---
DATE OF SERVICE: 04/16/2019 Mr. Zaldivar is awaiting bed placement. He offers no new complaints this morning, and we have been transitioned to oral antibiotics for a mild wound infection. He is again counseled about his smoking but seems very reluctant to even attempt to stop. Job ID: [id number]
[2019-04-16 15:26] VITALS: BP 147/90; TEMP 98
--- NOTE | 2019-04-16 21:05 | DIS ---
DATE OF ADMISSION: 04/11/2019 DATE OF DISCHARGE: 04/16/2019 RESIDENT: Verito Maria DO ADMITTING ATTENDING: Caleb Guerrero MD DISCHARGE ATTENDING: New Ace MD CONSULTS: 1. Dr. Oviedo, Surgery. 2. Wound Care. 3. Case Management. PROCEDURES: None. IMAGING: X-ray in the right lower extremity: shows gas in soft tissue, no osteomyelitis. PRIMARY DIAGNOSES: 1. Cellulitis of right lower extremity. 2. Below knee amputation stump complication. SECONDARY DIAGNOSES: 1. History of bilateral below knee amputation. 2. History of deep venous thrombosis. 3. Alcohol abuse. 4. Hypertension. 5. Peripheral vascular disease. 6. Tobacco abuse. 7. Hyponatremia. DISCHARGE MEDICATIONS: 1. Eliquis 5 mg p.o. b.i.d. 2. Aspirin 81 mg p.o. daily. 3. Atorvastatin 40 mg tab p.o. at bedtime. 4. [place] 10 mg/325 mg tab p.o. q.4 hours p.r.n. 5. Lisinopril 10 mg tab p.o. daily. 6. MiraLAX 17 g daily. 7. Bactrim 1 tab p.o. b.i.d. DISCONTINUED MEDICATIONS: 1. Pepcid 20 mg p.o. b.i.d. 2. Hydralazine 10 mg q.4 hours p.r.n. 3. Zofran 4 mg p.o. q.6 hours p.r.n. 4. Senokot 8.6 mg/50 mg p.o. b.i.d. 5. Lactated Ringers. 6. Morphine 4 mg q.4 hours p.r.n. 7. Zosyn 4.5 g. 8. Vancomycin 1 g IV. HISTORY OF PRESENT ILLNESS/HOSPITAL COURSE: Mr. Zaldivar is a 58-year-old male with a past medical history of bilateral BKAs, PVD, and multiple DVTs, who presented as a transfer from [facility] for evaluation of pain, tenderness, and drainage from 2 wounds on his right BKA stump. He stated that both of his legs have been hurting and tender for over a month, but he had also been walking around on his knees for that period of time and attributed the tenderness to this. Over the last 4 days , he had noticed a distinct increase in the pain and on April 10, the end of right leg stump began oozing clear, brown liquid and developed a bad odor. He presented to the [place] ER on April 11 for further evaluation. The ED doctor contacted the patient's surgeon, Dr. Oviedo. Dr. Oviedo saw the patient in the ER and recommended no surgery at this time, but did recommend an inpatient stay and wound care evaluation and treatment. Upon admission, the patient rated his pain as 7/10. The patient received 900 mg of clindamycin x1 dose and vancomycin 1 g x1 dose in the ER. Upon exam, the patient's right lower extremity had 2 wounds, one in the size of 5 x 6 cm and one the size of 3 x 5 cm. Upon admission to the Medicine floor, it was decided that Vancomycin would be continued along with the addition of Zosyn for broader antibiotic coverage. Pain medication including morphine 4 mg p.r.n. and [place] 10/325 mg p.r.n. were ordered. Over subsequent days, the patient's pain continued to improve and became well managed. Wound care was initiated with the last dressing change before discharge being on MondayApril 14. On day 4 of the hospital stay (April 15, 2019), morphine was discontinued for pain control but [place] was still continued. Also on day 4, Vancomycin and Zosyn were discontinued and p.o. Bactrim was started. This antibiotic was chosen due to wound culture results which demonstrated sensitivity of all 3 organisms to Bactrim. In addition to receiving antibiotic and treatment in pain control, the patient's Eliquis 5 mg was restarted during this hospital stay. The patient had previously stopped taking Eliquis due to inability to pay for this medication. Case management was consulted and was able to get the patient a coupon for significantly discounted Eliquis. Case management also worked to get the patient a swing bed at [facility]. On April, the patient was deemed stable for discharge to [facility]. A Doc to Doc with Dr. Stover at [facility] was completed and he accepted the patient. PERTINENT LABORATORY DATA: CBC on April 11: WBC 6.8, hemoglobin 17.7, hematocrit 53.5, platelets 130. BMP on April 11: Sodium 130, potassium 4.0, chloride 98, CO2 25, BUN 6, creatinine 0.61, glucose 81, lactic acid 1.1, CRP 1.84, ESR 2, procalcitonin 0.06. Lipid panel on April 11: Triglycerides 116, cholesterol 138, LDL 84, HDL 31. DISPOSITION: Stable. DISCHARGE INSTRUCTIONS: 1. Location: [facility]. 2. Diet: Heart healthy. 3. Activity: As tolerated. 4. Followup: With PCP in 1 week. Job ID: [id number] [facility]
== END 2019-04-16 18:44 | DRG 565 ==
LOC: ERS 01:35 → SURG A 04:15
PROVIDERS: ADMIT Family Medicine; ATTEND Family Medicine
DX: T87.44 Infection of amputation stump, left lower extremity (principal); L03.115 Cellulitis of right lower limb; E87.1 Hypo-osmolality and hyponatremia; F10.10 Alcohol abuse, uncomplicated; I10 Essential (primary) hypertension; I73.9 Peripheral vascular disease, unspecified; B95.62 Methicillin resistant Staphylococcus aureus infection as the cause of diseases classified elsewhere; B96.20 Unspecified Escherichia coli [E. coli] as the cause of diseases classified elsewhere; K59.00 Constipation, unspecified; Z89.511 Acquired absence of right leg below knee; Z86.718 Personal history of other venous thrombosis and embolism; Z79.899 Other long term (current) drug therapy
CPT/HCPCS: 36415; 80048; 80061; 80202; 83605; 83930; 83935; 84145; 84300; 85025; 85652; 86140; 87040; 87070; 87077; 87186; 87205; 96365; J1650; J2270; J2405; J2543; J3370; J3490; J7050

== ENCOUNTER 2019-05-10 08:22 | Inpatient (IN) | payer MEDICARE ==
[2019-05-09 13:59] VITALS: BMI 21.5
[2019-05-10] MEDS ORDERED: Midazolam HCl 2 mg/2 ml Vial ONE ×2 (08:44→08:54)
[2019-05-10] MEDS ORDERED: Fentanyl 100 MCG/2 ML VIAL ONE ×3 (08:44→12:11)
[2019-05-10] MEDS ORDERED: Fentanyl 250 MCG/5 ML VIAL ONE (08:54)
[2019-05-10] MEDS ORDERED: Ketamine 50 MG/ML (10ML VIAL) ONE (08:55)
[2019-05-10] MEDS ORDERED: Dexmedetomidine 200 MCG/2 ML VIAL ONE (08:55)
[2019-05-10] MEDS ORDERED: Lidocaine 1% (PF) 30 ML VIAL ONE (09:01)
[2019-05-10] MEDS ORDERED: Sodium Chloride 0.9% 100 ML ONE (09:19)
[2019-05-10] MEDS ORDERED: Piperacillin/Tazobactam 3.375 GM VIAL ONE (09:19)
[2019-05-10 09:25] LABS: Hemoglobin 17.2 g/dL (14.0-18.0); Mean Corpuscular HGB CONC 32.7 g/dL (32.0-36.0); Mean Corpuscular Hemoglobin 30.2 pg (27.0-31.0); Mean Corpuscular Volume 92.1 fL (78.0-98.0)
[2019-05-10 09:36] LABS: Anion Gap 14 mmol/L (10-20); BUN (Urea Nitrogen) 15 mg/dL (8.4-25.7); Calc. Creatinine Clearance 119 mL/min (70-130); Carbon Dioxide 22 mmol/L (22-29); Chloride 99 mmol/L (98-107); Estimated GFR-MDRD Greater than 90; Glucose 83 mg/dL (70-105); Potassium 4.7 mmol/L (3.5-5.1); Sodium 130 mmol/L (136-145)
[2019-05-10 09:48] LABS: #Eosinphils 0.3 thou/uL (0.0-0.7); #Lymphocytes 1.3 thou/uL (1.20-3.40); #Monocytes 0.6 thou/uL (0.11-0.59); #Neutrophils 4.8 thou/uL (1.40-6.50); %Basophils 0.6 % (0.0-1.0); %Eosinophils 4.4 % (0.0-10.0); %Lymphocytes 17.9 % (21.0-51.0); %Monocytes 8.3 % (0.0-10.0); %Neutrophils 68.7 % (42.0-75.0); Mean Platelet Volume 7.7 fL (7.4-10.4); Platelet Count 118 thou/uL (130-400); Platelet Morphology Comment Appears Decreased; RBC Distribution Width 12.2 % (11.5-14.5); RBC Morphology Normal
[2019-05-10] MEDS ORDERED: Acetaminophen 325 MG TAB PO PRN (10:29)
[2019-05-10] MEDS ORDERED: Fentanyl 100 MCG/2 ML VIAL SLOW IVP PRN ×2 (10:29)
[2019-05-10] MEDS ORDERED: Morphine 4 MG/ML VIAL IV PRN (10:29)
[2019-05-10] MEDS ORDERED: Ibuprofen 800 MG TAB PO PRN (10:29)
[2019-05-10] MEDS ORDERED: Promethazine HCl 25 MG/ML VIAL IM PRN (11:46)
[2019-05-10] MEDS ORDERED: Promethazine HCl 25 MG/ML VIAL SLOW IVP PRN (11:46)
[2019-05-10] MEDS ORDERED: Ondansetron HCl/PF 4 MG/2 ML Vial IVP PRN (11:46)
[2019-05-10] MEDS: traMADol HCl 50 MG TAB PO PRN ×2 (15:49→21:57)
[2019-05-10] MEDS: Piperacillin/Tazobactam 3.375 GM in Sodium Chloride 0.9% 100 ML IVPB SCH ×2 (15:50→21:45)
[2019-05-10] MEDS ORDERED: Bupivacaine HCl 0.5%/Epinephrine 1:200,000/PF 30 ml Vial ONE (16:56)
--- NOTE | 2019-05-10 17:06 | OP ---
DATE OF PROCEDURE: 05/10/2019 PREOPERATIVE DIAGNOSIS: Ischemic right below-knee amputation stump. POSTOPERATIVE DIAGNOSIS: Ischemic right below-knee amputation stump. PROCEDURE PERFORMED: Right above-knee amputation. ANESTHESIA: General endotracheal. ESTIMATED BLOOD LOSS: 100. DRAINS: None. SPECIMENS: Amputation specimen. DESCRIPTION OF PROCEDURE: After consent was obtained, the patient was brought to the operating room, placed in supine position on the operating table. Appropriate central line was placed, and general endotracheal anesthesia was induced. The right leg was prepped and draped in usual sterile fashion. [facility]putation skin incision was marked and made with a #10 blade. Cautery was used to dissect through the fascia circumferentially. The anterior incision was extended through the quadriceps muscles to the level of the femur. Periosteum was elevated off the femur. The superficial femoral artery and popliteal vein were divided between ties and divided sharply. The femur was divided with the oscillating saw. The posterior amputation was completed with the amputation knife. Hemostasis was ensured both with suture ligature and electrocautery. The femoral nerve was stripped and tied proximal. The wound was copiously irrigated. After adequate hemostasis had been obtained, the fascia was reapproximated with interrupted 0 Vicryl [id number] sutures. The skin was then approximated with clips. A fluff dressing was applied. The stump was wrapped in David bandage. The patient was awakened, extubated, and transferred to the recovery room in stable condition. Needle, sponge, and instrument counts were all reported correct at the end of the procedures. Job ID: [id number]
[2019-05-10] MEDS: HYDROcodone/Acetaminophen 10/325 mg Tablet PO PRN (19:28)
[2019-05-10] MEDS: Saccharomyces boulardii 250 MG CAP PO SCH (21:45)
[2019-05-10] MEDS: Atorvastatin Calcium 40 MG TAB PO SCH (21:45)
[2019-05-10] MEDS: Sulfameth/Trimethoprim DS 800-160mg TAB PO SCH (21:45)
[2019-05-11] MEDS: Piperacillin/Tazobactam 3.375 GM in Sodium Chloride 0.9% 100 ML IVPB SCH ×2 (04:03→10:21)
[2019-05-11] MEDS: traMADol HCl 50 MG TAB PO PRN ×2 (04:35→15:57)
[2019-05-11] MEDS: Polyethylene Glycol 3350 17 GM Packet PO SCH (08:49)
[2019-05-11] MEDS: Sulfameth/Trimethoprim DS 800-160mg TAB PO SCH ×2 (08:50→20:44)
[2019-05-11] MEDS: Saccharomyces boulardii 250 MG CAP PO SCH ×2 (08:50→20:44)
[2019-05-11] MEDS: Lisinopril 10 MG TAB PO SCH (08:50)
[2019-05-11] MEDS: Aspirin 81 mg Enteric Coated Tablet PO SCH (08:50)
[2019-05-11] MEDS: Famotidine 20 MG TAB PO SCH (08:51)
[2019-05-11] MEDS: HYDROcodone/Acetaminophen 10/325 mg Tablet PO PRN ×3 (12:26→22:18)
[2019-05-11] MEDS: Atorvastatin Calcium 40 MG TAB PO SCH (20:44)
[2019-05-12] MEDS: HYDROcodone/Acetaminophen 10/325 mg Tablet PO PRN ×5 (02:11→23:35)
[2019-05-12] MEDS: traMADol HCl 50 MG TAB PO PRN ×2 (04:10→20:19)
[2019-05-12] MEDS: Polyethylene Glycol 3350 17 GM Packet PO SCH (09:35)
[2019-05-12] MEDS: Famotidine 20 MG TAB PO SCH (09:36)
[2019-05-12] MEDS: Saccharomyces boulardii 250 MG CAP PO SCH ×2 (09:36→20:18)
[2019-05-12] MEDS: Sulfameth/Trimethoprim DS 800-160mg TAB PO SCH ×2 (09:36→20:19)
[2019-05-12] MEDS: Lisinopril 10 MG TAB PO SCH (09:36)
[2019-05-12] MEDS: Aspirin 81 mg Enteric Coated Tablet PO SCH (09:36)
[2019-05-12] MEDS: Atorvastatin Calcium 40 MG TAB PO SCH (20:18)
[2019-05-13] MEDS: HYDROcodone/Acetaminophen 10/325 mg Tablet PO PRN ×4 (05:13→23:59)
[2019-05-13] MEDS: Aspirin 81 mg Enteric Coated Tablet PO SCH (08:25)
[2019-05-13] MEDS: traMADol HCl 50 MG TAB PO PRN ×3 (08:25→22:51)
[2019-05-13] MEDS: Lisinopril 10 MG TAB PO SCH (08:25)
[2019-05-13] MEDS: Sulfameth/Trimethoprim DS 800-160mg TAB PO SCH ×2 (08:25→19:46)
[2019-05-13] MEDS: Saccharomyces boulardii 250 MG CAP PO SCH ×2 (08:25→19:46)
[2019-05-13] MEDS: Famotidine 20 MG TAB PO SCH (08:25)
[2019-05-13] MEDS: Polyethylene Glycol 3350 17 GM Packet PO SCH (08:27)
[2019-05-13] MEDS: Atorvastatin Calcium 40 MG TAB PO SCH (19:46)
[2019-05-14] MEDS: HYDROcodone/Acetaminophen 10/325 mg Tablet PO PRN ×2 (06:55→17:38)
[2019-05-14] MEDS: Polyethylene Glycol 3350 17 GM Packet PO SCH (08:27)
[2019-05-14] MEDS: Famotidine 20 MG TAB PO SCH (08:27)
[2019-05-14] MEDS: Aspirin 81 mg Enteric Coated Tablet PO SCH (08:27)
[2019-05-14] MEDS: Saccharomyces boulardii 250 MG CAP PO SCH (08:27)
[2019-05-14] MEDS: Sulfameth/Trimethoprim DS 800-160mg TAB PO SCH (08:27)
[2019-05-14] MEDS: Lisinopril 10 MG TAB PO SCH (08:28)
[2019-05-14] MEDS: traMADol HCl 50 MG TAB PO PRN (10:05)
[2019-05-14 11:53] VITALS: TEMP 97.9
[2019-05-14 15:50] VITALS: BP 93/64
--- NOTE | 2019-05-15 02:05 | DIS ---
DATE OF ADMISSION: 05/10/2019 DATE OF DISCHARGE: 05/14/2019 DISCHARGE DISPOSITION: snf unit. HISTORY OF PRESENT ILLNESS: Mr. Zaldivar was admitted with open wound on his below-knee stump, which had become so painful that he had requested revision to an above knee. He underwent above-knee amputation and is healing nicely postoperatively. He is being transferred back to the [facility] skilled unit in good condition to follow up with me in a month for staple removal. DISCHARGE MEDICATIONS: Unchanged from his admission. Job ID: [id number]
== END 2019-05-14 18:10 | DRG 475 ==
LOC: SURG A 08:22
PROVIDERS: ADMIT Thoracic Surgery (Cardiothoracic Vascular Surgery); ATTEND Thoracic Surgery (Cardiothoracic Vascular Surgery)
PROC: 0Y6C0Z1 Detachment at Right Upper Leg, High, Open Approach (ICD-10-PCS; principal; 2019-05-10)
DX: T87.43 Infection of amputation stump, right lower extremity (principal); I87.313 Chronic venous hypertension (idiopathic) with ulcer of bilateral lower extremity; I70.261 Atherosclerosis of native arteries of extremities with gangrene, right leg; I10 Essential (primary) hypertension; F17.210 Nicotine dependence, cigarettes, uncomplicated; F10.10 Alcohol abuse, uncomplicated; E78.5 Hyperlipidemia, unspecified; I70.233 Atherosclerosis of native arteries of right leg with ulceration of ankle; Z89.512 Acquired absence of left leg below knee; Z89.511 Acquired absence of right leg below knee
CPT/HCPCS: 80048; 85025; 88307; J2001; J2250; J2543; J3010; J3490